=== PATIENT | female | born 1980 | race Two or more races ===

== ENCOUNTER 2018-12-18 00:56 | Inpatient (IN) | payer MEDICAID ==
[~2018-12-18] VITALS: Ht 172.7 cm; Wt 59.0 kg
--- NOTE | 2018-12-18 01:15 | NUR ---
Patient ambulated with stable gait. Speech is clear, speaks in full sentences. No neuro deficits noted. A/Ox4. Patient came in for c/o sob. Patient has a hx of copd, asthma, and smokes daily. Home medication for respiratory processes failed to alleviate the sob, so patient decided to come in. No cardiovascular distress noted. No GI/ distress. Patient in bed at lowest position, sr upx2, call light within reach. Fall precautions implemented per protocol.
[2018-12-18] MEDS ORDERED: IPRATROPIUM BROMIDE 0.5 MG/2.5 ML NEBU NEB ONE ×2 (02:00→03:15)
[2018-12-18] MEDS ORDERED: ALBUTEROL SULFATE 2.5 MG/3 ML NEBU NEB ONE (02:00)
[2018-12-18] MEDS ORDERED: methylPREDNISolone SOD SUCC 125 MG/2 ML VIAL IV ONE (02:00)
[2018-12-18] MEDS ORDERED: ALBUTEROL SULFATE 2.5 MG/3 ML NEBU ONE (02:13)
[2018-12-18] MEDS ORDERED: IPRATROPIUM BROMIDE 0.5 MG/2.5 ML NEBU ONE ×2 (02:14→03:16)
[2018-12-18] MEDS ORDERED: methylPREDNISolone SOD SUCC 125 MG/2 ML VIAL ONE (02:15)
[2018-12-18 02:28] LABS: BASOPHILS # (AUTO) 0.1 K/uL (0.0-8.0); EOSINOPHILS # (AUTO) 0.6 K/uL (0.0-0.7); EOSINOPHILS % (AUTO) 13.5 % (0.0-7.0); HEMATOCRIT 35.3 % (31.2-41.9); HEMOGLOBIN 12.1 g/dL (10.9-14.3); LYMPHOCYTES # (AUTO) 1.1 K/uL (20.0-40.0); LYMPHOCYTES % (AUTO) 26.6 % (20.5-51.5); MEAN CORPUSCULAR HEMOGLOBIN 30.2 uug (24.7-32.8); MEAN CORPUSCULAR HGB CONC 34 g/dL (32.3-35.6); MEAN CORPUSCULAR VOLUME 88.1 fL (75.5-95.3); MONOCYTES # (AUTO) 0.6 K/uL (2.0-10.0); MONOCYTES % (AUTO) 13.8 % (0.0-11.0); NEUTROPHILS # (AUTO) 1.9 K/uL (1.8-8.9); NEUTROPHILS % (AUTO) 44.1 % (38.5-71.5); PLATELET COUNT (AUTO) 142 K/uL (179-408); RED BLOOD CELL COUNT(AUTO) 4.01 MIL/uL (3.63-4.92); WHITE BLOOD COUNT (AUTO) 4.2 K/uL (3.8-11.8)
[2018-12-18 02:29] LABS: CREATININE 0.9 mg/dL (0.6-1.3); POTASSIUM 3.6 mmol/L (3.5-5.1)
[2018-12-18 02:46] LABS: BILIRUBIN,DIRECT 0.1 mg/dL (0.0-0.2); BILIRUBIN,TOTAL 0.4 mg/dL (0.2-1.0); TOTAL PROTEIN, SERUM 6.3 g/dL (6.4-8.2)
--- NOTE | 2018-12-18 03:01 | NUR ---
Breathing tx completed. Patient reports that she feels better and denies any acute sob.
[2018-12-18] MEDS ORDERED: ALBUTEROL SULFATE 2.5 MG/ 0.5 ML NEBU NEB ONE (03:15)
[2018-12-18] MEDS ORDERED: ALBUTEROL SULFATE 2.5 MG/ 0.5 ML NEBU ONE (03:16)
[2018-12-18 04:57] LABS: ABG BASE EXCESS 0.6 mmol/L; ABG HCO3 24.5 mmol/L; ABG PH 7.439 (7.350-7.450); ABG PO2 65.3 mmHg (75.0-100.0); ABG SITE RIGHT RADIAL; ABG TOTAL HEMOGLOBIN 12.5 G/dL (12.0-16.0); COHb 2.6 % (0.5-1.5); MetHb 0.2 % (0.0-1.5); O2Hb 89.7 % (94.0-97.0); VENT MODE ROOM AIR
--- NOTE | 2018-12-18 05:03 | NUR ---
Patient in bed, NAD.
[2018-12-18] MEDS ORDERED: FLUT1DIS28 IH (05:35)
--- NOTE | 2018-12-18 05:37 | NUR ---
Called [facility]. Waiting for Dr Cerrato to call back
--- NOTE | 2018-12-18 05:38 | NUR ---
Dr Minaya speaking with Dr Cerrato on [facility] from [facility]
[2018-12-18] MEDS ORDERED: HYDROCODONE/APAP 5-325MG TABLET PO PRN (05:45)
[2018-12-18] MEDS ORDERED: Z GUARD REMEDY PASTE 57 GM TUBE TOP PRN (05:45)
[2018-12-18] MEDS ORDERED: MAGNESIUM HYDROXIDE 30 ML LIQUID UDC PO PRN (05:45)
[2018-12-18] MEDS ORDERED: ONDANSETRON 4 MG/2 ML VIAL IV PRN (05:45)
[2018-12-18] MEDS ORDERED: ACETAMINOPHEN 325 MG TABLET PO PRN (05:45)
--- NOTE | 2018-12-18 06:51 | NUR ---
Patient transferred to [facility] in stable condition via wheelchair.
[2018-12-18] MEDS ORDERED: PANTOPRAZOLE SODIUM 40 MG TABLET.DR PO SCH (07:00)
[2018-12-18] MEDS: ALBUTEROL SULFATE 2.5 MG/3 ML NEBU NEB SCH ×2 (07:41→10:49)
[2018-12-18] MEDS: IPRATROPIUM BROMIDE 0.5 MG/2.5 ML NEBU NEB SCH ×2 (07:41→10:49)
[2018-12-18 10:00] VITALS: BP 98/64
[2018-12-18] MEDS ORDERED: methylPREDNISolone SOD SUCC 40 MG/ML VIAL IV SCH (10:00)
[2018-12-18] MEDS ORDERED: methylPREDNISolone SOD SUCC 125 MG/2 ML VIAL IV SCH (10:00)
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
== END 2018-12-18 11:35 | disposition left against medical advice (07) | DRG 140 ==
LOC: ER 01:00 → TELE3 05:39
PROVIDERS: ADMIT Student in an Organized Health Care Education/Training Program; ATTEND Registered Nurse
DX: J44.1 Chronic obstructive pulmonary disease with (acute) exacerbation (principal); F17.210 Nicotine dependence, cigarettes, uncomplicated; J06.9 Acute upper respiratory infection, unspecified; Z66 Do not resuscitate; Z59.0 Homelessness; Z79.51 Long term (current) use of inhaled steroids; R09.02 Hypoxemia
CPT/HCPCS: 36415; 36600; 70030-TC; 71045; 83605; 85025; 87040; 93005; 94640; A4663; G0378; J2930; J3590

== ENCOUNTER 2019-06-26 04:03 | Emergency (ER) | payer MEDICAID ==
[~2019-06-26] VITALS: Ht 172.7 cm; Wt 56.7 kg
[~2019-06-26 04:03] MED LIST: FLUT1DIS28 IH
--- NOTE | 2019-06-26 04:15 | NUR ---
Patient ambulating with steady gait with family at bedside. A&O x4. c/o worsening SOB x2 days. Patient breathing and unlabored. per pt has hx of COPD and currently smokes 1/2 pack a day. mucous membranes moist and pink. Speech clear and able to make needs known / follow commands. denies any / GI distress. O2 sat at 91% on RA.
--- NOTE | 2019-06-26 04:15 | NUR ---
Dr. French at bedside for MSE
[2019-06-26] MEDS ORDERED: ALBUTEROL SULFATE 2.5 MG/3 ML NEBU ONE ×2 (04:26→06:19)
[2019-06-26] MEDS ORDERED: IPRATROPIUM BROMIDE 0.5 MG/2.5 ML NEBU ONE (04:26)
[2019-06-26] MEDS ORDERED: predniSONE 50 MG TABLET ONE (04:27)
[2019-06-26] MEDS ORDERED: IPRATROPIUM BROMIDE 0.5 MG/2.5 ML NEBU NEB ONE (04:30)
[2019-06-26] MEDS ORDERED: predniSONE 50 MG TABLET PO ONE (04:30)
[2019-06-26] MEDS ORDERED: ALBUTEROL SULFATE 2.5 MG/3 ML NEBU NEB ONE ×2 (04:30→06:15)
--- NOTE | 2019-06-26 05:37 | NUR ---
Patient receiving neb treatment states "Im feeling better my breathing is good"
[2019-06-26] MEDS ORDERED: ALBU18HF2 IH (05:49)
--- NOTE | 2019-06-26 06:33 | NUR ---
Patient continues to have bilateral wheezing non productive cough Dr French aware ordered continued neb. treatment for hour patient is aware and receiving treatment.
--- NOTE | 2019-06-26 07:17 | NUR ---
Patient leaving ER against medical advise Dr. richmond did give patient discharge instructions and f/u instructions.
[2019-06-26 07:19] VITALS: BP 129/75
== END 2019-06-26 07:25 | disposition left against medical advice (07) ==
LOC: ER 04:04
DX: J44.1 Chronic obstructive pulmonary disease with (acute) exacerbation (principal); F17.200 Nicotine dependence, unspecified, uncomplicated; Z79.51 Long term (current) use of inhaled steroids; Z79.899 Other long term (current) drug therapy
CPT/HCPCS: 93005; 94644; 94645; 99285; J7512; A4663; J3590

== ENCOUNTER 2019-07-26 03:39 | Emergency (ER) | payer SELFPAY ==
[~2019-07-26] VITALS: Ht 172.7 cm; Wt 59.0 kg
[~2019-07-26 03:39] MED LIST changes: +ALBU18HF2 IH
[2019-07-26] MEDS ORDERED: ALBUTEROL SULFATE 2.5 MG/ 0.5 ML NEBU ONE (04:09)
[2019-07-26] MEDS ORDERED: IPRATROPIUM BROMIDE 0.5 MG/2.5 ML NEBU ONE (04:09)
[2019-07-26] MEDS ORDERED: predniSONE 50 MG TABLET ONE (04:14)
[2019-07-26] MEDS ORDERED: ALBUTEROL SULFATE 2.5 MG/3 ML NEBU NEB ONE ×3 (04:15→06:15)
[2019-07-26] MEDS ORDERED: predniSONE 50 MG TABLET PO ONE (04:15)
[2019-07-26] MEDS ORDERED: IPRATROPIUM BROMIDE 0.5 MG/2.5 ML NEBU NEB ONE (04:15)
[2019-07-26 04:21] LABS: BASOPHILS # (AUTO) 0.1 K/uL (0.0-8.0); BASOPHILS % (AUTO) 1.4 % (0.0-2.0); EOSINOPHILS # (AUTO) 0.5 K/uL (0.0-0.7); EOSINOPHILS % (AUTO) 10.3 % (0.0-7.0); HEMATOCRIT 35.7 % (31.2-41.9); HEMOGLOBIN 12.5 g/dL (10.9-14.3); LYMPHOCYTES # (AUTO) 1.5 K/uL (20.0-40.0); LYMPHOCYTES % (AUTO) 31.3 % (20.5-51.5); MEAN CORPUSCULAR HEMOGLOBIN 30.4 uug (24.7-32.8); MEAN CORPUSCULAR HGB CONC 35 g/dL (32.3-35.6); MEAN CORPUSCULAR VOLUME 86.8 fL (75.5-95.3); MONOCYTES # (AUTO) 0.5 K/uL (2.0-10.0); MONOCYTES % (AUTO) 11.1 % (0.0-11.0); NEUTROPHILS # (AUTO) 2.2 K/uL (1.8-8.9); NEUTROPHILS % (AUTO) 45.9 % (38.5-71.5); PLATELET COUNT (AUTO) 196 K/uL (179-408); RED BLOOD CELL COUNT(AUTO) 4.11 MIL/uL (3.63-4.92); WHITE BLOOD COUNT (AUTO) 4.9 K/uL (3.8-11.8)
--- NOTE | 2019-07-26 04:24 | NUR ---
PT ABLE TO TOLERATE BREATHING TREATMENT ABLE TO TOLERATE PO MEDS ORDERED
[2019-07-26] MEDS ORDERED: LEVOFLOXACIN 750 MG/D5W 150 ML PIGGYBACK IV ONE (04:45)
[2019-07-26 04:55] LABS: BILIRUBIN,DIRECT 0.1 mg/dL (0.0-0.2); BILIRUBIN,TOTAL 0.6 mg/dL (0.2-1.0); CREATININE 0.7 mg/dL (0.6-1.3); POTASSIUM 3.9 mmol/L (3.5-5.1); TOTAL PROTEIN, SERUM 6.2 g/dL (6.4-8.2)
[2019-07-26] MEDS ORDERED: LEVOFLOXACIN 750MG/D5W 150 ML IV ONE (04:55)
[2019-07-26] MEDS ORDERED: ALBUTEROL SULFATE 2.5 MG/3 ML NEBU ONE ×2 (05:05→06:16)
[2019-07-26] MEDS ORDERED: BENZONATATE 100 MG CAPSULE ONE (06:05)
[2019-07-26] MEDS ORDERED: BENZONATATE 100 MG CAPSULE PO ONE (06:15)
--- NOTE | 2019-07-26 07:10 | NUR ---
Patient discharged to home in stable conditon. Written and verbal after care instructions given. Patient verbalizes understanding of instructions. ambulatory w/ stable gait all belongings w/ pt
[2019-07-26 07:18] VITALS: BP 100/81
== END 2019-07-26 07:19 | disposition home or self-care (01) ==
LOC: ER 03:50
DX: J44.1 Chronic obstructive pulmonary disease with (acute) exacerbation (principal); F17.200 Nicotine dependence, unspecified, uncomplicated; Z59.0 Homelessness; Z79.899 Other long term (current) drug therapy; Z79.51 Long term (current) use of inhaled steroids
CPT/HCPCS: 36415; 71045; 80048; 80076; 85025; 87040 ×2; 94640 ×3; 96365; 99285; J1956; J7512; 87077; A4663; J3590

== ENCOUNTER 2019-08-27 04:30 | Emergency (ER) | payer MEDICAID ==
[~2019-08-27] VITALS: Ht 172.7 cm; Wt 59.0 kg
--- NOTE | 2019-08-27 04:50 | NUR ---
Patient walked into ER c/o SOB with dry cough and wheezing for 2 days. Came in for worsening symptoms.
[2019-08-27] MEDS ORDERED: IPRATROPIUM BROMIDE 0.5 MG/2.5 ML NEBU ONE ×2 (05:00→07:49)
[2019-08-27] MEDS ORDERED: ALBUTEROL SULFATE 2.5 MG/3 ML NEBU NEB ONE ×4 (05:00→08:45)
[2019-08-27] MEDS ORDERED: IPRATROPIUM BROMIDE 0.5 MG/2.5 ML NEBU NEB ONE ×2 (05:00→07:45)
[2019-08-27] MEDS ORDERED: ALBUTEROL SULFATE 2.5 MG/3 ML NEBU ONE ×4 (05:00→08:56)
[2019-08-27] MEDS ORDERED: ALBUTEROL SULFATE 2.5 MG/ 0.5 ML NEBU NEB ONE ×2 (05:30→06:15)
--- NOTE | 2019-08-27 05:30 | NUR ---
refused rapid influenza swab.
[2019-08-27] MEDS ORDERED: ALBUTEROL SULFATE 2.5 MG/ 0.5 ML NEBU ONE (05:33)
[2019-08-27] MEDS ORDERED: predniSONE 20 MG TABLET ONE (06:11)
[2019-08-27] MEDS ORDERED: predniSONE 20 MG TABLET PO ONE (06:15)
--- NOTE | 2019-08-27 06:20 | NUR ---
MD ORDERED 10MG OF 2.5MG/0.5ML ALBUTEROL CONT. TX. NOT ENOUGH MEDS IN PYXIS AT THIS TIME. SUGGESTED MD TO ORDER 10MG ALBUTERAOL, 2.5MG/3ML CONTINUOUS TX FOR 1 HOUR. MEDICATION ADMINISTERED AT THIS TIME.
--- NOTE | 2019-08-27 07:38 | NUR ---
Patient noted to be saturating at 90% on room air. Placed on 2L [address] French made aware.
[2019-08-27] MEDS ORDERED: BENZONATATE 100 MG CAPSULE PO ONE (07:45)
[2019-08-27] MEDS ORDERED: BENZONATATE 100 MG CAPSULE ONE (07:48)
--- NOTE | 2019-08-27 07:51 | NUR ---
RT at bedside administering breathing tx.
--- NOTE | 2019-08-27 08:36 | NUR ---
Dr. French spoke to patient regarding admission; per patient states she doesn't want to be admitted right now.
--- NOTE | 2019-08-27 09:10 | NUR ---
Patient recieving breathing tx. No acute distress noted.
--- NOTE | 2019-08-27 09:39 | NUR ---
Patient given written and verbal discharge instructions. Patient verbalizes understanding of instructions. Patient is ambulatory with steady gait. Refuses offer of group home placement. Patient given list of available shelters in surrounding area.
[2019-08-27 09:43] VITALS: BP 114/67
== END 2019-08-27 09:45 | disposition home or self-care (01) ==
LOC: ER 04:30
DX: J98.01 Acute bronchospasm (principal); F17.290 Nicotine dependence, other tobacco product, uncomplicated; J44.1 Chronic obstructive pulmonary disease with (acute) exacerbation; Z79.899 Other long term (current) drug therapy; Z71.6 Tobacco abuse counseling; Z59.0 Homelessness
CPT/HCPCS: 94640 ×4; 94644; 99285; 99406; J7512; A4663; J3590

== ENCOUNTER 2019-09-01 03:57 | Emergency (ER) | payer MEDICAID ==
[~2019-09-01] VITALS: Ht 172.7 cm; Wt 59.0 kg
--- NOTE | 2019-09-01 04:30 | NUR ---
Patient sleeping on gurny with no distress noted.
[2019-09-01] MEDS ORDERED: predniSONE 50 MG TABLET ONE (04:53)
[2019-09-01] MEDS ORDERED: predniSONE 10 MG TABLET ONE (04:53)
[2019-09-01] MEDS ORDERED: ALBUTEROL SULFATE 2.5 MG/3 ML NEBU ONE (04:59)
[2019-09-01] MEDS ORDERED: ALBUTEROL SULFATE 2.5 MG/ 0.5 ML NEBU ONE (04:59)
[2019-09-01] MEDS ORDERED: IPRATROPIUM BROMIDE 0.5 MG/2.5 ML NEBU ONE (04:59)
[2019-09-01] MEDS ORDERED: ALBUTEROL SULFATE 2.5 MG/3 ML NEBU NEB ONE (05:00)
[2019-09-01] MEDS ORDERED: predniSONE 10 MG TABLET PO ONE (05:00)
[2019-09-01] MEDS ORDERED: IPRATROPIUM BROMIDE 0.5 MG/2.5 ML NEBU NEB ONE (05:00)
--- NOTE | 2019-09-01 05:30 | NUR ---
patient sleeping with no distress noted.
--- NOTE | 2019-09-01 06:44 | NUR ---
Patient given written and verbal discharge instructions. Patient verbalizes understanding of instructions. Patient is ambulatory with steady gait. Refuses offer of penitentiary placement. Patient given list of available shelters in surrounding area.
[2019-09-01 06:46] VITALS: BP 110/70
== END 2019-09-01 06:48 | disposition home or self-care (01) ==
LOC: ER 03:59
DX: J44.1 Chronic obstructive pulmonary disease with (acute) exacerbation (principal); F15.90 Other stimulant use, unspecified, uncomplicated; F10.10 Alcohol abuse, uncomplicated; Z79.899 Other long term (current) drug therapy; Z59.0 Homelessness
CPT/HCPCS: 71045; 94644; 99285; J7512 ×2; A4663; J3590

== ENCOUNTER 2020-08-08 06:07 | Emergency (ER) | payer MEDICAID ==
[~2020-08-08] VITALS: Ht 172.7 cm; Wt 77.1 kg
[~2020-08-08 06:07] MED LIST changes: +PRED10TA PO
[2020-08-08 07:09] VITALS: BP 110/68
--- NOTE | 2020-08-08 07:10 | NUR ---
Patient discharged to home in stable condition. Written and verbal after care instructions given. Patient verbalizes understanding of instructions. Stressed follow up or return to ER for worsening s/s.
== END 2020-08-08 07:10 | disposition home or self-care (01) ==
LOC: ER 06:10
DX: Z76.0 Encounter for issue of repeat prescription (principal); J44.9 Chronic obstructive pulmonary disease, unspecified; F17.208 Nicotine dependence, unspecified, with other nicotine-induced disorders; Z59.0 Homelessness; L29.9 Pruritus, unspecified
CPT/HCPCS: A4663

== ENCOUNTER 2021-12-06 01:26 | Emergency (ER) | payer MEDICAID ==
[~2021-12-06] VITALS: Ht 172.7 cm; Wt 90.7 kg
--- NOTE | 2021-12-06 01:28 | NUR ---
Dr herrera at bedside, MSE in progress.
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
[2021-12-06] MEDS ORDERED: OXYCODONE/APAP 5-325 MG TABLET ONE (01:39)
[2021-12-06] MEDS ORDERED: OXYCODONE/APAP 5-325 MG TABLET PO ONE (01:45)
[2021-12-06] MEDS ORDERED: KETOROLAC TROMETHAMINE 60 MG INJ IM ONE ×2 (02:40→02:45)
[2021-12-06] MEDS ORDERED: LIDOCAINE HCL 2% 20 ML VIAL ONE (02:59)
[2021-12-06] MEDS ORDERED: LIDOCAINE HCL 2% 20 ML VIAL IJ ONE (03:00)
[2021-12-06] MEDS ORDERED: BACITRACIN ZINC OINT 15 GM TUBE ONE (03:26)
[2021-12-06] MEDS ORDERED: OXYC-128 PO (03:32)
[2021-12-06 03:51] VITALS: BP 131/70
--- NOTE | 2021-12-06 03:51 | NUR ---
Patient discharged to home in stable condition. Written and verbal after care instructions given. Patient verbalizes understanding of instructions. Stressed follow up or return to ER for worsening s/s. Crutches dispensed. Pt instructed on proper use of crutches. Patient able to demonstrate correct use of crutches.
== END 2021-12-06 03:50 | disposition home or self-care (01) ==
LOC: ER 01:26
DX: S92.311A Displaced fracture of first metatarsal bone, right foot, initial encounter for closed fracture (principal); S92.331A Displaced fracture of third metatarsal bone, right foot, initial encounter for closed fracture; S92.341G Displaced fracture of fourth metatarsal bone, right foot, subsequent encounter for fracture with delayed healing; V03.90XA Pedestrian on foot injured in collision with car, pick-up truck or van, unspecified whether traffic or nontraffic accident, initial encounter; Y92.9 Unspecified place or not applicable; J44.9 Chronic obstructive pulmonary disease, unspecified; Z59.00 Homelessness unspecified; S91.311A Laceration without foreign body, right foot, initial encounter
CPT/HCPCS: 12002; 73630; 96372; 99283; J1885; J3490; A4663

== ENCOUNTER → 2022-06-26 | Emergency (ER) | payer MEDICAID ==
[~2022-06-26] VITALS: Ht 172.7 cm; Wt 82.6 kg
[~2022-06-26] MED LIST changes: -ALBU18HF2 IH; +ALBU6.7H9 INH; +ALBUTEROL SULFATE 2.5 MG/3 ML NEBU NEB ONE; +ALBUTEROL SULFATE 2.5 MG/3 ML NEBU ONE; +CHOLECALCIFEROL 1,000 UNIT TABLET PO SCH; +DOXY-326 PO; +DOXYCYCLINE HYCLATE 100 MG TABLET ONE; +DOXYCYCLINE HYCLATE 100 MG TABLET PO ONE; -FLUT1DIS28 IH; +IPRATROPIUM BROMIDE 0.5 MG/2.5 ML NEBU NEB ONE; +IPRATROPIUM BROMIDE 0.5 MG/2.5 ML NEBU ONE; +OXYC-128 PO; +OXYCODONE/APAP 5-325 MG TABLET ONE; +OXYCODONE/APAP 5-325 MG TABLET PO ONE; -PRED10TA PO
[2022-06-26 04:22] LABS: CREATININE 0.7 mg/dL (0.6-1.3); HEMATOCRIT 26.4 % (31.2-41.9); MEAN CORPUSCULAR HEMOGLOBIN 30.6 uug (24.7-32.8); MEAN CORPUSCULAR VOLUME 83.3 fL (75.5-95.3); PLATELET COUNT (AUTO) 239 K/uL (179-408); POTASSIUM 3.7 mmol/L (3.5-5.1)
[2022-06-26 04:49] LABS: *BILIRUBIN,URIN NEGATIVE (NEGATIVE); *BLOOD, URINE NEGATIVE (NEGATIVE); *CLARITY,URINE CLEAR (CLEAR); *COLOR,URINE YELLOW (YELLOW); *KETONES,URINE NEGATIVE (NEGATIVE); *UROBILINOGEN,URINE 0.2 E.U./dl (NORMAL); LEUKOCYTE ESTERASE ,URINE NEGATIVE (NEGATIVE); NITRITE, URINE NEGATIVE (NEGATIVE); UGLUCOSE NEGATIVE (NEGATIVE)
[2022-06-26 05:06] LABS: *AMPHETAMINE, URINE POSITIVE (NEGATIVE); *CANNABINOID, URINE NEGATIVE (NEGATIVE); *COCCAINE, URINE NEGATIVE (NEGATIVE); *OPIATE, URINE NEGATIVE (NEGATIVE); *PHENCYCLIDINE SCREEN,URINE NEGATIVE (NEGATIVE)
[2022-06-26 05:57] VITALS: BP 122/78
[2022-06-26 05:57] LABS: MAGNESIUM 1.8 mg/dL (1.8-2.4)
== END | disposition home or self-care (01) ==
LOC: ER 03:07
DX: J44.9 Chronic obstructive pulmonary disease, unspecified (principal); J45.901 Unspecified asthma with (acute) exacerbation; D64.9 Anemia, unspecified; F15.10 Other stimulant abuse, uncomplicated; R09.1 Pleurisy; Z87.891 Personal history of nicotine dependence; Z59.00 Homelessness unspecified
CPT/HCPCS: 36415; 71046; 83550; 83735; 85025; A4663; J3590